=== PATIENT | male | born 1935 | race American Indian/Alaskan Native ===

== ENCOUNTER 2017-06-04 08:30 | Emergency (ER) | payer MEDICARE, OTHER ==
[2017-06-04 08:31] VITALS: BMI 27.6
[2017-06-04 08:40] VITALS: TEMP 97.9; O2SAT 98
--- NOTE | 2017-06-04 09:12 | ED PDOC ---
Arrival/HPI - General Chief Complaint: Headache Time Seen by Provider: 06/04/17 08:39 Historian: Patient, Spouse - History of Present Illness Narrative History of Present Illness (Text): 06/04/17 09:09 Pt p/w + 4-5 days onset of waxing/waning left scalp/headache, at most pain is 3- 4/10; pt states the headache is tolerable most times; pt states no additional/ associated symptoms; pt states no fever/chills/sweats, no neck pain, no facial changes/pain, no vision changes, no cp/sob/palpitations, no abd pain, no n/v, no numbness/tingling, no focal arm/leg weakness, no urinary/bowel changes, no appetite changes; pt states no rashes, no fall/trauma/sick contact, no travel; pt states ~ 1 week ago he self-repair his own lower mouth denture piece; pt states no dental pain otherwise; pt states no LOC/lightheadedness; pt had breakfast this morning prior to ED arrival; pt drove to ED for further eval pt's without other complaints PCP: Dr Lee pt is right hand dominate Time/Duration: < week (4-5 days) Symptom Onset: Gradual Symptom Course: Intermittent Quality: Aching, Pressure Severity Level: 4 Activities at Onset: Rest Context: Home Past Medical History - Provider Review Nursing Documentation Reviewed: Yes - Travel History Have you recently traveled outside [place] w/in the past 3 mons?: No - Past History Past History: No Previous - Infectious Disease Hx of Infectious Diseases: None - Tetanus Immunization Tetanus Immunization: Up to Date - Cardiac Hx Cardiac Arrhythmia: Yes (afib) Hx Hypertension: Yes - Genitourinary/Gynecological Hx Prostate Cancer: (beginning signs) - Psychiatric Hx Psychophysiologic Disorder: No Hx Substance Use: No - Surgical History Other/Comment: seed implant - Anesthesia Hx Anesthesia: Yes Hx Anesthesia Reactions: No Hx Malignant Hyperthermia: No - Suicidal Assessment Feels Threatened In Home Enviroment: No Family/Social History - Physician Review Nursing Documentation Reviewed: Yes Family/Social History: No Known Family HX Smoking Status: Never Smoked Hx Alcohol Use: Yes (wine) Frequency of alcohol use: Socially Hx Substance Use: No Hx Substance Use Treatment: No Allergies/Home Meds Allergies/Adverse Reactions: Allergies loratadine [From Claritin-D] Adverse Reaction (Verified 06/04/17 08:41) PAIN pseudoephedrine [From Claritin-D] Adverse Reaction (Verified 06/04/17 08:41) PAIN Home Medications: Home Meds Medication Instructions Recorded Confirmed Diltiazem HCl [Cardizem Cd] 300 mg PO DAILY 04/06/14 06/04/17 Losartan [Cozaar] 50 mg PO DAILY 04/06/14 06/04/17 Rosuvastatin Calcium [Crestor] 10 mg PO HS 06/04/17 06/04/17 Ubidecarenone [Co Q-10] 1 cap PO HS 06/04/17 06/04/17 Warfarin [Coumadin] 7.5 mg PO QOTHERDAY 06/04/17 06/04/17 Review of Systems - Review of Systems Constitutional: Normal Eyes: Normal. absent: Vision Changes, Photophobia ENT: Normal Respiratory: Normal Cardiovascular: Normal Gastrointestinal: Normal Genitourinary Male: Normal Musculoskeletal: Normal Skin: Normal Neurological: Headache. absent: Dizziness Endocrine: Normal Hemo/Lymphatic: Normal Psychiatric: Normal Physical Exam Vital Signs Reviewed: Yes Vital Signs Temp Pulse Resp BP Pulse Ox 06/04/17 08:34 97.9 F 78 20 165/77 H 98 Temperature: Afebrile Blood Pressure: Normal Pulse: Regular Respiratory Rate: Normal Appearance: Positive for: Well-Appearing, Comfortable, Other (alert/awake, GCS = 15, oriented x 3, NAD, cooperative; resting in bed) Pain Distress: None Mental Status: Positive for: Alert and Oriented X 3 - Systems Exam Head: Present: Atraumatic, Normocephalic, Other (no scalp rashes noted, no focal tenderness noted on exam of the scalp) Pupils: Present: PERRL, Other (no nystagmus, no photophobia, sclera anicteric, visual field intact b/l; wearing eyeglasses) Extroacular Muscles: Present: EOMI Conjunctiva: Present: Normal Ears: Present: Normal Mouth: Present: Moist Mucous Membranes, Other (wearing denatures; no gum lesions /erythema noted; no gum swelling noted, no focal dental tenderness, no fluctuance noted) Pharnyx: Present: Normal Nose (External): Present: Atraumatic Nose (Internal): Present: Normal Inspection Neck: Present: Normal Range of Motion, Trachea Midline, Other (no midline tenderness, no nuchal rigidity, no step off, no meningeal signs). No: MIDLINE TENDERNESS Respiratory/Chest: Present: Clear to Auscultation, Good Air Exchange, Other ( CTA b/l, no w/r/r, no accessory muscle use noted, no tachypenia) Cardiovascular: Present: Regular Rate and Rhythm, Normal S1, S2. No: Murmurs Abdomen: Present: Normal Bowel Sounds, Other (well nourished male, no focal tenderness, no masses/rebound/guarding/rigidity; no fernando's sign, no mcburney' s point tenderness) Back: Present: Normal Inspection. No: CVA Tenderness, Midline Tenderness Upper Extremity: Present: Normal Inspection, Normal ROM, NORMAL PULSES, Neurovascularly Intact, Capillary Refill < 2s Lower Extremity: Present: Normal Inspection, NORMAL PULSES, Normal ROM, Neurovascularly Intact, Capillary Refill < 2 s, Other (+ ambulatory) Neurological: Present: GCS=15, CN II-XII Intact, Speech Normal, Other (no facial asymmetries, no slurr speech, NIH stroke scale ~ 0) Skin: Present: Warm, Normal Color, Other (cap refill < 1sec, no ulcerations, no petechiae) Psychiatric: Present: Alert, Oriented x 3 Medical Decision Making ED Course and Treatment: 06/04/17 09:10 Impression: atrumatic headache, left sided i have consider all the differential diagnosis regarding pt's chief medical complaints/clinical findings, including but are not limited to: atrumatic headache, left sided A/P: left sided headache - labs - iv - ct - observe - supportive care 06/04/17 09:40 offered patient for headache/pain control, pt states he is ok, and doesnt need anything at the moment 06/04/17 12:35 pt is doing well pt is not in any distress pt is comfortable pt/spouse are made aware of his medical results pt is encouraged outpt f/u pt will be discharged home Re-evaluation Time: 12:34 Reassessment Condition: Improved - Lab Interpretations Lab Results: 06/04/17 09:20 06/04/17 09:20 Lab Results 06/04/17 09:20: C-React Prot High Sens > 15.00 H 06/04/17 09:20: Sodium 139, Potassium 4.6, Chloride 103, Carbon Dioxide 27, Anion Gap 14, BUN 20, Creatinine 1.1, Est GFR ( Amer) > 60, Est GFR (Non- Af Amer) > 60, Random Glucose 134 H, Calcium 10.0, Total Bilirubin 0.5, AST 35, ALT 40, Alkaline Phosphatase 80, Total Protein 7.3, Albumin 4.1, Globulin 3.2, Albumin/Globulin Ratio 1.3 06/04/17 09:20: PT 30.6 H, INR 2.61 H, APTT 46.5 H 06/04/17 09:20: WBC 4.8, RBC 4.63, Hgb 13.1 L, Hct 38.5 L, MCV 83.2, MCH 28.3, MCHC 34.0, RDW 13.9, Plt Count 176, MPV 9.3, Gran % 63.6, Lymph % (Auto) 23.1, [place] % (Auto) 10.6 H, Eos % (Auto) 2.5, Baso % (Auto) 0.2, Gran # 3.05, Lymph # (Auto) 1.1 L, [place] # (Auto) 0.5, Eos # (Auto) 0.1, Baso # (Auto) 0.01, ESR 24 H I have reviewed the lab results: Yes Interpretation: Abnormal lab values (slightly elevated ESR/CRP) - RAD Interpretation Narrative RAD Interpretations (Text): 06/04/17 12:34 PROCEDURE: CT HEAD WITHOUT CONTRAST. HISTORY: left sided headache, atrumatic COMPARISON: Comparison is made with 04/06/2014 TECHNIQUE: Axial computed tomography images were obtained through the head/brain without intravenous contrast. Radiation dose: Total exam DLP = 884.93 mGy-cm. This CT exam was performed using one or more of the following dose reduction techniques: Automated exposure control, adjustment of the mA and/or kV according to patient size, and/or use of iterative reconstruction technique. FINDINGS: HEMORRHAGE: No intracranial hemorrhage. BRAIN: No mass effect or edema. No atrophy or chronic microvascular ischemic changes. VENTRICLES: Unremarkable. No hydrocephalus. CALVARIUM: Unremarkable. PARANASAL SINUSES: Unremarkable as visualized. No significant inflammatory changes. MASTOID AIR CELLS: Unremarkable as visualized. No inflammatory changes. OTHER FINDINGS: None. IMPRESSION: Normal CT of the Head. Radiology Orders: 06/04/17 11:26 HEAD W/O CONTRAST [CT] Stat Home Visitor: Radiologist Disposition/Present on Arrival - Present on Arrival Any Indicators Present on Arrival: No History of DVT/PE: No History of Uncontrolled Diabetes: No Urinary Catheter: No History of Decub. Ulcer: No History Surgical Site Infection Following: None - Disposition Have Diagnosis and Disposition been Completed?: Yes Diagnosis: Headache Disposition: HOME/ ROUTINE Disposition Time: 12:06 Patient Plan: Discharge Patient Problems: Current Active Problems Problem Status Onset Headache Acute Condition: STABLE Discharge Instructions (ExitCare): Headache, Adult Print Language: SURINAMESE Additional Instructions: Make sure to see your doctor in 1-2 days DRINK PLENTY OF FLUIDS take your medications as prescribed RETURN TO ED IF worse pain, cant breath, persistent vomiting, high fever >101- 102 for hours, altered behavior, unable to urinate, heavy/persistent bleeding, passing out, chest pain, or other medical emergencies Prescriptions: Ibuprofen [Motrin] 400 mg PO TID PRN #15 tab PRN Reason: Pain, Mild (1-3) Referrals: Binh Lee MD [Primary Care Provider] - Follow up with primary Francesca Melton MD [Staff Provider] - Follow up with primary Forms: [employer] (Thai)
[2017-06-04 09:35] LABS: BASO # 0.01 K/mm3 (0.0-2.0); BASO % 0.2 % (0.0-3.0); EOS # 0.1 (0.0-0.7); EOS % 2.5 % (1.5-5.0); GRAN # 3.05 (1.4-6.5); GRAN % 63.6 % (50.0-68.0); HEMOGLOBIN 13.1 g/dL (14.0-18.0); LYMPH # 1.1 (1.2-3.4); LYMPH % 23.1 % (22.0-35.0); MEAN CELL VOLUME 83.2 fl (80.0-105.0); MEAN CORPUSCULAR HEMOGLOBIN 28.3 pg (25.0-35.0); MEAN PLATELET VOLUME 9.3 fl (7.0-11.0); MONO # 0.5 (0.1-0.6); MONO % 10.6 % (1.0-6.0); RBC 4.63 10^6/uL (3.5-6.1); RED CELL DISTRIBUTION WIDTH 13.9 % (11.5-14.5); WHITE BLOOD COUNT 4.8 10^3/ul (4.5-11.0)
[2017-06-04 09:43] LABS: INR 2.61 (0.93-1.08); PARTIAL THROMBOPLASTIN TIME 46.5 Seconds (25.1-36.5); PROTHROMBIN TIME 30.6 SECONDS (9.4-12.5)
[2017-06-04 09:44] LABS: ALB/GLOB RATIO 1.3 (1.1-1.8); ALBUMIN 4.1 g/dL (3.0-4.8); ALT/SGPT 40 U/L (7-56); AST/SGOT 35 U/L (17-59); BLOOD UREA NITROGEN 20 mg/dL (7-21); GFR AFRICAN-AMERICAN > 60; GFR NON-AFRICAN AMERICAN > 60
--- NOTE | 2017-06-04 12:30 | CT ---
PROCEDURE: CT HEAD WITHOUT CONTRAST. HISTORY: left sided headache, atrumatic COMPARISON: Comparison is made with 04/06/2014 TECHNIQUE: Axial computed tomography images were obtained through the head/brain without intravenous contrast. Radiation dose: Total exam DLP = 884.93 mGy-cm. This CT exam was performed using one or more of the following dose reduction techniques: Automated exposure control, adjustment of the mA and/or kV according to patient size, and/or use of iterative reconstruction technique. FINDINGS: HEMORRHAGE: No intracranial hemorrhage. BRAIN: No mass effect or edema. No atrophy or chronic microvascular ischemic changes. VENTRICLES: Unremarkable. No hydrocephalus. CALVARIUM: Unremarkable. PARANASAL SINUSES: Unremarkable as visualized. No significant inflammatory changes. MASTOID AIR CELLS: Unremarkable as visualized. No inflammatory changes. OTHER FINDINGS: None. IMPRESSION: Normal CT of the Head.
[2017-06-04 12:42] VITALS: BP 135/79; PULSE 88; RESP 18
== END 2017-06-04 12:43 | disposition home or self-care (01) ==
LOC: ED 08:30
DX: R51 Headache (principal); I10 Essential (primary) hypertension; I48.91 Unspecified atrial fibrillation